=== PATIENT | female | born 1965 | race Caucasian/White ===

== ENCOUNTER 2019-07-04 12:07 | Outpatient (CLI) | payer BC, SELFPAY ==
--- NOTE | 2019-07-04 13:00 | MMO ---
Bilateral MAMMO Bilat Screen [facility]. CLINICAL HISTORY: Patient is 54 years old and is seen for screening. The patient has no family history of breast cancer. The patient has no personal history of cancer. The patient has a history of right Ultrasound Guided Core Biopsy in November, - benign. VIEWS: The views performed were: bilateral craniocaudal with tomosynthesis and bilateral mediolateral oblique with tomosynthesis. FILMS COMPARED: The present examination has been compared to prior imaging studies performed at [facility] on 11/17/2010, 11/23/2011, 09/30/2015 and 07/10/2017. This study has been interpreted with the assistance of computer-aided detection. MAMMOGRAM FINDINGS: The breasts are heterogeneously dense, which could obscure a lesion on mammography. Finding 1: There is a stable biopsy clip seen in the right breast. Finding 2: There is a stable intramammary lymph node seen in the left breast. There are no suspicious masses, suspicious calcifications, or new areas of architectural distortion. IMPRESSION: THERE IS NO MAMMOGRAPHIC EVIDENCE OF MALIGNANCY. A ROUTINE FOLLOW-UP MAMMOGRAM IN 1 YEAR IS RECOMMENDED. THE RESULTS OF THIS EXAM WERE SENT TO THE PATIENT. ACR BI-RADS Category 2 - Benign finding MAMMOGRAPHY NOTE: 1. A negative mammogram report should not delay a biopsy if a dominant of clinically suspicious mass is present. 2. Approximately 10% to 15% of breast cancers are not detected by mammography. 3. Adenosis and dense breasts may obscure an underlying neoplasm. Reported by: EDYTA VAUGHAN MD Electonically Signed: [id number]
== END 2019-07-04 12:08 | disposition home or self-care (01) ==
LOC: BICMAMMO 12:07
PROVIDERS: ATTEND Family Medicine
DX: Z12.31 Encounter for screening mammogram for malignant neoplasm of breast (principal)
CPT/HCPCS: 77063; 77067

== ENCOUNTER 2020-07-21 14:05 | Outpatient (CLI) | payer BC ==
--- NOTE | 2020-07-21 15:26 | MMO ---
Bilateral MAMMO Bilat Screen [facility]. CLINICAL HISTORY: Patient is 55 years old and is seen for screening. The patient has no family history of breast cancer. The patient has no personal history of cancer. The patient has a history of right Ultrasound Guided Core Biopsy in November, - benign. VIEWS: The views performed were: bilateral craniocaudal with tomosynthesis and bilateral mediolateral oblique with tomosynthesis. FILMS COMPARED: The present examination has been compared to prior imaging studies performed at [facility] on 11/23/2011, 09/30/2015, 07/10/2017 and 07/04/2019. This study has been interpreted with the assistance of computer-aided detection. MAMMOGRAM FINDINGS: There are scattered fibroglandular densities. Finding 1: There are stable benign appearing calcifications seen in both breasts. Finding 2: There is a stable biopsy clip seen in the right breast. Finding 3: There is a stable intramammary lymph node seen in the left breast. There are no suspicious masses, suspicious calcifications, or new areas of architectural distortion. IMPRESSION: THERE IS NO MAMMOGRAPHIC EVIDENCE OF MALIGNANCY. A ROUTINE FOLLOW-UP MAMMOGRAM IN 1 YEAR IS RECOMMENDED. THE RESULTS OF THIS EXAM WERE SENT TO THE PATIENT. ACR BI-RADS Category 2 - Benign finding MAMMOGRAPHY NOTE: 1. A negative mammogram report should not delay a biopsy if a dominant of clinically suspicious mass is present. 2. Approximately 10% to 15% of breast cancers are not detected by mammography. 3. Adenosis and dense breasts may obscure an underlying neoplasm. Reported by: MARVA RICHTER MD Electonically Signed: [id number]
== END 2020-07-21 14:06 | disposition home or self-care (01) ==
LOC: BICMAMMO 14:05
PROVIDERS: ATTEND Family Medicine
DX: Z12.31 Encounter for screening mammogram for malignant neoplasm of breast (principal)
CPT/HCPCS: 77063; 77067

== ENCOUNTER 2020-08-04 08:09 | Outpatient (CLI) | payer BC ==
--- NOTE | 2020-08-04 11:15 | CT ---
CT ABDOMEN AND PELVIS WITH IV CONTRAST: DATE: 08/04/2020. PROVIDED CLINICAL HISTORY: Right lower quadrant pain, nausea, and diarrhea. FINDINGS: Comparison is made with the study dated 03/23/2010. The visualized lung bases are free of significant opacity. The liver, spleen, kidneys, and adrenal glands appear unremarkable. There is a somewhat diffusely hy podense appearance to the pancreas with loss of the normal lobulated pancreatic contour. There is no pancreatic enlargement or peripancreatic inflammatory change evident. The gallbladder is surgically absent. There is no bowel dilatation, inflammatory stranding, free flu id, or lymph node enlargement apparent. The uterus is surgically absent. Residual left ovarian tiss ue is seen. The regional major vascular structures appear unremarkable. The osseous structures demonstrate no concerning lytic or blastic lesions. IMPRESSION: Diffusely hypodense and featureless pancreas without enlargement. This could reflect autoimmune panc reatitis. POS: EVGENY
[2020-08-04] MEDS ORDERED: Iopamidol-370 76% 500 ML 1 ML ONE (13:41)
== END 2020-08-04 08:10 | disposition home or self-care (01) ==
LOC: BICCT 08:09
PROVIDERS: ATTEND Internal Medicine Gastroenterology
DX: R10.30 Lower abdominal pain, unspecified (principal); R19.7 Diarrhea, unspecified; M19.90 Unspecified osteoarthritis, unspecified site; K86.89 Other specified diseases of pancreas
CPT/HCPCS: 74177; Q9967

== ENCOUNTER 2021-11-28 12:29 | Outpatient (CLI) | payer BC | END 2021-11-28 12:30 | disposition home or self-care (01) | LOC: BICMAMMO 12:29 | PROVIDERS: ATTEND Family Medicine | DX: Z12.31 Encounter for screening mammogram for malignant neoplasm of breast (principal); Z91.89 Other specified personal risk factors, not elsewhere classified | CPT/HCPCS: 77063; 77067 ==

== ENCOUNTER 2022-01-26 07:49 | Outpatient (CLI) | payer SELFPAY | END 2022-01-26 07:50 | disposition home or self-care (01) | LOC: TBSIIMAG 07:49 | PROVIDERS: ATTEND Neurological Surgery | DX: M54.50 Low back pain, unspecified (principal); M51.26 Other intervertebral disc displacement, lumbar region; M47.816 Spondylosis without myelopathy or radiculopathy, lumbar region | CPT/HCPCS: 72148 ==

== ENCOUNTER 2022-02-16 08:34 | Outpatient (CLI) | payer BC ==
[2022-02-16 10:07] LABS: Hemoglobin 14.3 g/dL (12.0-15.5); Mean Corpuscular HGB CONC 33.1 g/dL (32.0-36.0); Mean Corpuscular Volume 93.5 fl (81.6-98.3); Mean Platelet Volume 9.3 fl (7.4-10.4); Platelet Count 379 10x3/uL (150-450); RBC Distribution Width 16.2 % (11.5-14.5); Red Blood Cell (RBC) Count 4.62 10x6/uL (3.90-5.03); White Blood Cell (WBC) Count 10.6 10x3/uL (3.5-10.5)
[2022-02-16 10:27] LABS: Anion Gap 15 mmol/L (10-20); BUN (Urea Nitrogen) 20 mg/dL (9.8-20.1); Calc. Creatinine Clearance 0 mL/min (70-130); Calcium 9.7 mg/dL (7.8-10.44); Carbon Dioxide 25 mmol/L (22-29); Chloride 104 mmol/L (98-107); Glucose 113 mg/dL (70-105); Potassium 5.2 mmol/L (3.5-5.1); Sodium 139 mmol/L (136-145)
[2022-02-16 15:30] LABS: Anion Gap 13 mmol/L (10-20); BUN (Urea Nitrogen) 26 mg/dL (9.8-20.1); Calc. Creatinine Clearance 0 mL/min (70-130); Calcium 9.3 mg/dL (7.8-10.44); Carbon Dioxide 26 mmol/L (22-29); Chloride 102 mmol/L (98-107); Glucose 116 mg/dL (70-105); Potassium 5.1 mmol/L (3.5-5.1); Sodium 136 mmol/L (136-145)
[2022-02-16 16:29] LABS: SARS-CoV-2 PCR by NAA Not Detected (NotDetected)
== END 2022-02-16 08:35 | disposition home or self-care (01) ==
LOC: LABBT 08:34
PROVIDERS: ATTEND Transplant Surgery
DX: Z01.818 Encounter for other preprocedural examination (principal); Z20.822 Contact with and (suspected) exposure to COVID-19
CPT/HCPCS: 80048; 85027; 93005; 93010; U0003; U0005

== ENCOUNTER 2022-02-20 07:02 | Day surgery (SDC) | payer BC ==
[2022-02-16 16:30] VITALS: BMI 29.0
[2022-02-20] MEDS ORDERED: ceFAZolin (BATCH) 2 GM/100 ML BAG ONE (08:48)
[2022-02-20] MEDS ORDERED: Midazolam HCl 2 mg/2 ml Vial ONE (09:03)
[2022-02-20] MEDS ORDERED: Dexamethasone 20 MG/5 ML VIAL ONE (09:08)
[2022-02-20] MEDS ORDERED: ePHEDrine 50 MG/ML VIAL ONE (09:08)
[2022-02-20] MEDS ORDERED: Ondansetron PF 4 MG/2 ML Vial ONE (09:08)
[2022-02-20] MEDS ORDERED: Lidocaine 1% PF 5 ML VIAL ONE (09:08)
[2022-02-20] MEDS ORDERED: Ketorolac Tromethamine 30 MG/ML VIAL ONE (09:08)
[2022-02-20] MEDS ORDERED: Rocuronium Bromide 10 MG/ML (10ML VIAL) ONE (09:08)
[2022-02-20] MEDS ORDERED: PROPOFOL 200 MG/20 ML VIAL ONE (09:08)
[2022-02-20] MEDS ORDERED: fentaNYL Citrate/PF 100 MCG/2 ML SYRINGE ONE ×2 (09:14→10:00)
[2022-02-20] MEDS ORDERED: SUGAMMADEX SODIUM 200 MG/2 ML VIAL ONE (09:57)
[2022-02-20] MEDS ORDERED: Fentanyl 100 MCG/2 ML VIAL ONE (10:40)
[2022-02-20] MEDS ORDERED: Acetaminophen 325 MG TAB ONE (11:47)
[2022-02-20] MEDS ORDERED: traMADol HCl 50 MG TAB ONE (11:47)
== END 2022-02-20 12:54 | disposition home or self-care (01) ==
LOC: SDC 07:02
PROVIDERS: ATTEND Neurological Surgery
PROC: 01NB0ZZ Release Lumbar Nerve, Open Approach (ICD-10-PCS; principal; 2022-02-20)
PROC: 0SB20ZZ Excision of Lumbar Vertebral Disc, Open Approach (ICD-10-PCS; principal; 2022-02-20)
DX: M51.16 Intervertebral disc disorders with radiculopathy, lumbar region (principal); M06.9 Rheumatoid arthritis, unspecified; I10 Essential (primary) hypertension; Z79.52 Long term (current) use of systemic steroids; Z79.890 Hormone replacement therapy; Z79.899 Other long term (current) drug therapy; Z88.5 Allergy status to narcotic agent; Z88.8 Allergy status to other drugs, medicaments and biological substances; Z91.018 Allergy to other foods; Z91.048 Other nonmedicinal substance allergy status; Z98.1 Arthrodesis status
CPT/HCPCS: 76000; C1713; J0690; J1100; J1885; J2250; J2405; J2704; J3010; J3370; J3490

== ENCOUNTER 2022-03-08 09:10 | Outpatient (CLI) | payer BC | END 2022-03-08 09:11 | disposition home or self-care (01) | LOC: TBSIIMAG 09:10 | DX: M15.1 Heberden's nodes (with arthropathy) (principal); M06.00 Rheumatoid arthritis without rheumatoid factor, unspecified site ==

== ENCOUNTER 2022-03-29 12:22 | Outpatient (CLI) | payer BC | END 2022-03-29 12:23 | disposition home or self-care (01) | LOC: TBSIIMAG 12:22 | PROVIDERS: ATTEND Family Medicine | DX: M62.81 Muscle weakness (generalized) (principal); R41.3 Other amnesia; R29.898 Other symptoms and signs involving the musculoskeletal system; M47.812 Spondylosis without myelopathy or radiculopathy, cervical region | CPT/HCPCS: 70551; 72141 ==

== ENCOUNTER 2022-04-20 13:07 | Outpatient (CLI) | payer BC | END 2022-04-20 13:08 | disposition home or self-care (01) | LOC: TBSIIMAG 13:07 | PROVIDERS: ATTEND Family Medicine | DX: R06.00 Dyspnea, unspecified (principal) | CPT/HCPCS: 71046 ==

== ENCOUNTER 2022-04-24 06:16 | Day surgery (SDC) | payer BC ==
[2022-04-21 13:24] VITALS: BMI 29.8
[2022-04-24] MEDS ORDERED: Heparin 10,000 UNITS/ 10 ML VIAL ONE (08:12)
[2022-04-24] MEDS ORDERED: Nitroglycerin 100MG/250ML BOT 250 ML ONE (08:12)
[2022-04-24] MEDS ORDERED: Verapamil 5 MG/2 ML VIAL ONE (08:12)
[2022-04-24] MEDS ORDERED: Lidocaine 1% (PF) 30 ML VIAL ONE ×2 (08:13→09:16)
[2022-04-24] MEDS ORDERED: Lidocaine 1% PF 5 ML VIAL ONE (08:14)
[2022-04-24] MEDS ORDERED: Midazolam HCl 2 mg/2 ml Vial ONE ×2 (08:19→09:15)
[2022-04-24] MEDS ORDERED: Fentanyl 100 MCG/2 ML VIAL ONE (08:19)
[2022-04-24] MEDS ORDERED: Iopamidol 370 76% 100 ML VIAL ONE (14:37)
== END 2022-04-24 13:00 | disposition home or self-care (01) ==
LOC: SDC 06:16
PROVIDERS: ATTEND Internal Medicine Cardiovascular Disease
PROC: 4A023N7 Measurement of Cardiac Sampling and Pressure, Left Heart, Percutaneous Approach (ICD-10-PCS; principal; 2022-04-24)
PROC: B2111ZZ Fluoroscopy of Multiple Coronary Arteries using Low Osmolar Contrast (ICD-10-PCS; principal; 2022-04-24)
DX: I20.0 Unstable angina (principal); M06.9 Rheumatoid arthritis, unspecified; I10 Essential (primary) hypertension; E03.9 Hypothyroidism, unspecified; Z79.82 Long term (current) use of aspirin; Z79.890 Hormone replacement therapy; Z79.899 Other long term (current) drug therapy; Z88.5 Allergy status to narcotic agent; Z88.8 Allergy status to other drugs, medicaments and biological substances; Z91.048 Other nonmedicinal substance allergy status; Z20.822 Contact with and (suspected) exposure to COVID-19
CPT/HCPCS: 87811; 93458; 99152; 99153; C1769; J1644; J2001; J2250; J3010; Q9967

== ENCOUNTER 2022-05-01 09:18 | Outpatient (CLI) | payer BC | END 2022-05-01 09:19 | disposition home or self-care (01) | LOC: LABBT 09:18 | PROVIDERS: ATTEND Family Medicine | DX: Z20.822 Contact with and (suspected) exposure to COVID-19 (principal) | CPT/HCPCS: 87811 ==

== ENCOUNTER 2022-05-11 12:42 | Outpatient (CLI) | payer BC ==
[2022-05-11] MEDS ORDERED: Iopamidol-370 76% 500 ML 1 ML ONE (16:02)
== END 2022-05-11 12:43 | disposition home or self-care (01) ==
LOC: BICCT 12:42
PROVIDERS: ATTEND Family Medicine
DX: R06.00 Dyspnea, unspecified (principal); R79.1 Abnormal coagulation profile; J98.4 Other disorders of lung
CPT/HCPCS: 71275; Q9967

== ENCOUNTER 2022-11-03 14:32 | Outpatient (CLI) | payer BC | END 2022-11-03 14:33 | disposition home or self-care (01) | LOC: BICCT 14:32 | PROVIDERS: ATTEND Internal Medicine Critical Care Medicine | DX: R91.1 Solitary pulmonary nodule (principal); J98.4 Other disorders of lung | CPT/HCPCS: 71250 ==

== ENCOUNTER 2023-01-17 10:14 | Outpatient (CLI) | payer BC | END 2023-01-17 10:15 | disposition home or self-care (01) | LOC: BICMAMMO 10:14 | PROVIDERS: ATTEND Family Medicine | DX: Z12.31 Encounter for screening mammogram for malignant neoplasm of breast (principal) | CPT/HCPCS: 77063; 77067 ==

== ENCOUNTER 2023-11-12 08:20 | Outpatient (CLI) | payer BC | END 2023-11-12 08:21 | disposition home or self-care (01) | LOC: RAD 08:20 | PROVIDERS: ATTEND Internal Medicine Critical Care Medicine | DX: R06.00 Dyspnea, unspecified (principal) | CPT/HCPCS: 71046 ==